=== PATIENT | female | born 2000 | race Caucasian/White ===

== ENCOUNTER 2021-12-17 08:58 | Emergency (ER) | payer OTHER, MEDICAID, SELFPAY ==
[2021-12-17 09:08] VITALS: BP 144/89; PULSE 78; RESP 16; TEMP 36.6; O2SAT 100; BMI 28.3
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
[2021-12-17 09:51] LABS: Squamous Epithelial Cell Urine 5-10 /HPF (0-5/HPF)
[2021-12-17 09:52] LABS: RBC Urine 30-100/HPF (0-5/HPF)
[2021-12-17 09:53] LABS: Bacteria Urine Moderate (10-30)
[2021-12-17 09:54] LABS: Culture Indicated Urine Specimen Cultured; WBC Urine 10-30/HPF (0-5/HPF)
[2021-12-17] MEDS: ACETAMINOPHEN 325 MG TABLET 975 MG PO (10:29)
[2021-12-17] MEDS: TRIMETH/SULFA 160/800 (DS) TABLET 1 TAB PO (10:30)
[2021-12-17] MEDS: ONDANSETRON 4 MG ODT SL (10:30)
[2021-12-17 10:33] VITALS: BP 149/91; PULSE 56; RESP 18; O2SAT 98
== END 2021-12-17 10:37 | disposition home or self-care (01) ==
PROVIDERS: Emergency Provider Emergency Medicine; PCP Orthopaedic Surgery
DX: N12 Tubulo-interstitial nephritis, not specified as acute or chronic (principal)
CPT/HCPCS: 81003; 81015; 81025; 87077; 87086; 87147; 99283

== ENCOUNTER 2022-11-26 21:30 | Emergency (ER) | payer OTHER, MEDICAID, SELFPAY ==
[2022-11-26 21:38] VITALS: BP 136/85; PULSE 105; RESP 18; TEMP 36.3; O2SAT 100; BMI 26.5
--- NOTE | 2022-11-26 21:44 | DI.RAD.S_ITS ---
PROCEDURE: XR TIBIA FUBULA RT 2V INDICATIONS: has contusion and pain after hit by a softball TECHNIQUE: 2 views of the tibia and fibula were acquired. COMPARISON: None. FINDINGS: Bones: No fractures or dislocations. No suspicious bony lesions. Soft tissues: No suspicious soft tissue calcifications or masses. IMPRESSION: 1. No fracture or dislocation. Dictated by: Gordo Tse M.D. on 11/26/2022 at 23:18 Approved by: Gordo Tse M.D. on 11/26/2022 at 23:19
--- NOTE | 2022-11-26 23:31 | ED.LOWEXIN ---
HPI - Extremity Injury (Lower) General Chief Complaint: Extremity Injury, Lower Stated Complaint: rt ching pain, hit by baseball Time Seen by Provider: 11/26/22 23:29 Source: patient Mode of arrival: Ambulatory History of Present Illness HPI Narrative: Patient is a 22-year-old female who is here for evaluation of an injury to her right ching. She states she was hit by a softball earlier today. No other injuries from the event. Has had difficulty walking and there is bruising and swelling over the area. Related Data Previous Rx's Medication Instructions Recorded ondansetron 4 mg disintegrating 4 mg PO Q6H PRN nausea and 12/17/21 tablet vomiting #5 tabs sulfamethoxazole 800 1 tab PO Q12H #20 tabs 12/17/21 mg-trimethoprim 160 mg tablet (Bactrim DS) Allergies Allergy/AdvReac Type Severity Reaction Status Date / Time No Known Drug Allergies Allergy Verified 12/17/21 09:14 Review of Systems Musculoskeletal Musculoskeletal: Reports system reviewed and no additional complaints, except as documented Integumentary/Breasts Skin/Breast: Reports system reviewed and no additional complaints, except as documented Neurologic Neurologic: Reports system reviewed and no additional complaints, except as documented Patient History Social History Smoking Status: Current every day smoker Smoking Status: Current every day smoker tobacco type: vaping alcohol intake frequency: holidays/special occasions only Substance Use Type: does not use Exam Initial Vital Signs Initial Vital Signs: Vital Signs Temperature 97.3 F L 11/26/22 21:38 Pulse Rate 105 H 11/26/22 21:38 Respiratory Rate 18 11/26/22 21:38 Blood Pressure 136/85 11/26/22 21:38 Pulse Oximetry 100 11/26/22 21:38 Oxygen Delivery Method Room Air 11/26/22 21:38 Skin Other: Superficial contusion to the anterior distal 1/3 of the right ching. There are no breaks in the skin. Extrem Other: Contusion to the right anterior ching Course Orders Ordered: ED Orders 11/26/22 21:44 XR tibia fibula RT 2V Stat Vital Signs Vital signs: Vital Signs - 8 hr 11/26/22 21:38 Temperature 97.3 F L Pulse Rate 105 H Respiratory Rate 18 Blood Pressure 136/85 Pulse Oximetry 100 Oxygen Delivery Method Room Air MDM - Extremity Injury (Lower) Imaging Data Extremity x-ray #1: Radiologist's Impression: PROCEDURE:? XR TIBIA FUBULA RT 2V ? INDICATIONS:? has contusion and pain after hit by a softball ? TECHNIQUE:? 2 views of the tibia and fibula were acquired.? ? COMPARISON:? None. ? FINDINGS:? ? Bones:? No fractures or dislocations.? No suspicious bony lesions.? ? Soft tissues:? No suspicious soft tissue calcifications or masses.? ? IMPRESSION:? ? 1. No fracture or dislocation. [facility] Narrative Medical decision making narrative: Has a fairly large contusion in the right anterior ching without fracture or dislocation. No breaks in the skin. Discussed the findings of the x-ray with the patient. Will discharge home with care instructions and return precautions. She expressed understanding and agreement. Discharge Plan Departure Patient Disposition: Home Clinical Impression: Contusion of skin Instructions: DI for Contusion Activity Restrictions/Additional Instructions: No fractures were noted on the x-rays. You can walk on your leg as tolerated. You can take Tylenol or ibuprofen for discomfort. Using ice over the area maybe helpful as well. Prescriptions: No Action sulfamethoxazole-trimethoprim [Bactrim DS] 800-160 mg tablet 1 tab PO Q12H Qty: 20 0RF ondansetron 4 mg tablet,disintegrating 4 mg PO Q6H PRN (Reason: nausea and vomiting) Qty: 5 0RF Referrals: Bridger Garcia MD [Primary Care Provider] - Stand Alone Forms: Patient Portal/API
== END 2022-11-26 23:38 | disposition home or self-care (01) ==
PROVIDERS: Emergency Provider Emergency Medicine; PCP Family Medicine
DX: S80.11XA Contusion of right lower leg, initial encounter (principal); W21.07XA Struck by softball, initial encounter
CPT/HCPCS: 73590; 99281; 99283

== ENCOUNTER 2024-04-05 13:55 | Emergency (ER) | payer OTHER, SELFPAY ==
--- NOTE | 2024-04-05 13:58 | ED_ITS ---
HPI - Wound/Laceration <Constanza Lauren PA-C - Last Filed: 04/05/24 16:48> General Chief Complaint: Extremity Injury, Upper Stated Complaint: pinched by a crab right hand Time Seen by Provider: 04/05/24 13:58 History of Present Illness HPI narrative: Ms. Montenegro is a pleasant 23-year-old female with no reported past medical history who presents to the emergency department for a right middle finger injury sustained from a crab just prior to arrival. 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 The patient eventually got the crab off but reports her middle finger was twisted abnormally and she also sustained multiple small puncture wounds. She took 2 Excedrin migraine prior to ED arrival. She is unsure of her last tetanus shot. She denies any antibiotic allergies. She denies any other problems or injuries. Denies history of blood thinner use or diabetes. Related Data Previous Rx's Medication Instructions Recorded ondansetron 4 mg disintegrating 4 mg PO Q6H PRN nausea and 12/17/21 tablet vomiting #5 tabs sulfamethoxazole 800 1 tab PO Q12H #20 tabs 12/17/21 mg-trimethoprim 160 mg tablet (Bactrim DS) doxycycline hyclate 100 mg capsule 100 mg PO BID 5 days #10 caps 04/05/24 fluconazole 150 mg tablet 150 mg PO .once #1 tab 04/05/24 levofloxacin 750 mg tablet 750 mg PO DAILY 4 days #4 tabs 04/05/24 Allergies Allergy/AdvReac Type Severity Reaction Status Date / Time No Known Drug Allergies Allergy Verified 12/17/21 09:14 Review of Systems <Constanza Lauren PA-C - Last Filed: 04/05/24 16:48> Review of Systems ROS Unobtainable: All systems reviewed & are unremarkable except as noted in HPI and below Patient History <Constanza Lauren PA-C - Last Filed: 04/05/24 16:48> Social History Smoking Status: Current every day smoker Smoking Status: Current every day smoker tobacco type: vaping alcohol intake frequency: holidays/special occasions only Substance Use Type: does not use Exam <Constanza Lauren PA-C - Last Filed: 04/05/24 16:48> Narrative Exam Narrative: GENERAL: 23 year old patient appears stated age. Well-developed patient, in no acute distress. HEAD: Atraumatic. Normocephalic. EYES: Extraocular motions intact. No scleral icterus. No injection or drainage. ENT: Nose without bleeding, purulent drainage. NECK: Trachea midline. Cervical ROM intact. CARDIOVASCULAR: Regular rate RESPIRATORY: ?Nonlabored respirations. ?Speaking in clear, full sentences. EXTREMITIES: Right middle finger pain with flexion at the dip PIP and PIP. Flexion and extension intact. No pain with flexion of MCP. NEURO: AOx3. ?Clear speech. ?Moves all 4 extremities appropriately. SKIN: Right middle finger with 6 pinpoint puncture wounds along the distal and middle phalanx. No active bleeding. Brisk capillary refill. No nail damage. Initial Vital Signs Initial Vital Signs: Vital Signs Temperature 97.9 F 04/05/24 14:04 Pulse Rate 67 04/05/24 14:04 Respiratory Rate 18 04/05/24 14:04 Blood Pressure 144/66 H 04/05/24 14:04 Pulse Oximetry 99 04/05/24 14:04 Oxygen Delivery Method Room Air 04/05/24 14:04 <Zackary Chavez MD - Last Filed: 04/05/24 19:31> Initial Vital Signs Initial Vital Signs: Vital Signs Temperature 97.9 F 04/05/24 14:04 Pulse Rate 67 04/05/24 14:04 Respiratory Rate 18 04/05/24 14:04 Blood Pressure 144/66 H 04/05/24 14:04 Pulse Oximetry 99 04/05/24 14:04 Oxygen Delivery Method Room Air 04/05/24 14:04 Course <Constanza Lauren PA-C - Last Filed: 04/05/24 16:48> Orders Ordered: ED Orders 04/05/24 14:11 XR finger RT min 2V Stat 04/05/24 15:57 Urine Culture Stat Urine Microscopic Stat Discontinued Medications Bacitracin (Bacitracin Oint 0.9 Gm Pckt) 1 applic TOP NOW ONE Stop: 04/05/24 15:45 Last Admin: 04/05/24 16:28 Dose: 1 applic Documented By: RB Diphtheria/Tetanus/Acell Pertussis (Tet,Diph,Pertuss(Acell),Vac/Pf 0.5 Ml Syri nge) 0.5 ml IM .ONCE ONE Stop: 04/05/24 14:13 Last Admin: 04/05/24 16:28 Dose: 0.5 ml Documented By: RB Doxycycline Hyclate (Doxycycline Hyclate 100 Mg Tablet) 100 mg PO NOW ONE Stop: 04/05/24 15:45 Last Admin: 04/05/24 16:28 Dose: 100 mg Documented By: RB Levofloxacin (Levofloxacin 250 Mg Tablet) 750 mg PO NOW ONE Stop: 04/05/24 15:45 Last Admin: 04/05/24 16:28 Dose: 750 mg Documented By: RB Vital Signs Vital signs: Vital Signs - 8 hr 04/05/24 14:04 04/05/24 14:07 04/05/24 16:57 Temperature 97.9 F 98.1 F Pulse Rate 67 77 Pulse Rate [Right Radial] 72 Respiratory Rate 18 18 Blood Pressure 144/66 H 136/62 Pulse Oximetry 99 99 Oxygen Delivery Method Room Air Room Air <Zackary Chavez MD - Last Filed: 04/05/24 19:31> Orders Ordered: ED Orders 04/05/24 14:11 XR finger RT min 2V Stat 04/05/24 15:57 Urine Culture Stat Urine Microscopic Stat Discontinued Medications Bacitracin (Bacitracin Oint 0.9 Gm Pckt) 1 applic TOP NOW ONE Stop: 04/05/24 15:45 Last Admin: 04/05/24 16:28 Dose: 1 applic Documented By: RB Diphtheria/Tetanus/Acell Pertussis (Tet,Diph,Pertuss(Acell),Vac/Pf 0.5 Ml Syringe) 0.5 ml IM .ONCE ONE Stop: 04/05/24 14:13 Last Admin: 04/05/24 16:28 Dose: 0.5 ml Documented By: RB Doxycycline Hyclate (Doxycycline Hyclate 100 Mg Tablet) 100 mg PO NOW ONE Stop: 04/05/24 15:45 Last Admin: 04/05/24 16:28 Dose: 100 mg Documented By: RB Levofloxacin (Levofloxacin 250 Mg Tablet) 750 mg PO NOW ONE Stop: 04/05/24 15:45 Last Admin: 04/05/24 16:28 Dose: 750 mg Documented By: RB Vital Signs Vital signs: Vital Signs - 8 hr 04/05/24 14:04 04/05/24 14:07 04/05/24 16:57 Temperature 97.9 F 98.1 F Pulse Rate 67 77 Pulse Rate [Right Radial] 72 Respiratory Rate 18 18 Blood Pressure 144/66 H 136/62 Pulse Oximetry 99 99 Oxygen Delivery Method Room Air Room Air MDM - Wound/Laceration <Constanza Lauren PA-C - Last Filed: 04/05/24 16:48> Lab Data Labs: Lab Results 04/05/24 Range/Units 15:57 Urine RBC None seen (0-5/HPF) Urine WBC 5-10/hpf H (0-5/HPF) Ur Squamous Epith Cells 10-30 /hpf H (0-5/HPF) Urine Bacteria Few (2-10) H (None) Ur Culture Indicated? Specimen cultured Vol Urine Centrifuged 10ml (spun) Imaging Data Right Middle Finger X-Ray: Radiologist's Impression: PROCEDURE: XR FINGER RT MIN 2V INDICATIONS: right middle finger crab pinch w/ puncture wounds TECHNIQUE: AP hand, 2 views of the 3rd distal finger(s) acquired. COMPARISON: None. FINDINGS: Bones: No fractures or dislocations. No suspicious bony lesions. Soft tissues: No suspicious soft tissue calcifications. IMPRESSION: No acute bony abnormality. No foreign body seen. [facility] Narrative Medical decision making narrative: 23-year-old female with no reported past medical history, right-hand dominant, presents to the emergency department for crab injury to her right middle finger. Differential diagnosis includes but is not limited to middle finger fracture, minimal finger strain, puncture wound, laceration, infection, salt water conta mination, etc. On exam patient is in no acute distress, nontoxic appearing, vital signs within normal limits. She has pain with flexion of her right middle finger and small puncture wounds after a crab latched onto her. We will update tetanus shot, obtain x-ray of the finger, extensively irrigate and cleanse wound. We will discuss empiric antibiotic coverage with pharmacy given salt water exposure. X-ray negative for acute bony abnormality or foreign body. Tdap updated. After shared decision-making with the pharmacy, we will cover patient with levofloxacin and doxycycline for soft tissue puncture wound with sea water exposure. I discussed black box risks of fluoroquinolones with the patient. UA with signs of contamination, patient's suspect she has a yeast infection, prescribed her a dose of Diflucan to take after completion of antibiotics if needed for yeast infection symptoms. She has not having any dysuria, we will hold off on antibiotics for UTI pending urine culture. Discussed proper wound care with patient. Discussed signs and symptoms of infection to return to ER for. Her wound was cleansed extensively and nonadherent dressing was applied with bacitracin. All questions answered. Patient is stable for discharge. <Zackary Chavez MD - Last Filed: 04/05/24 19:31> Lab Data Labs: Lab Results 04/05/24 Range/Units 15:57 Urine RBC None seen (0-5/HPF) Urine WBC 5-10/hpf H (0-5/HPF) Ur Squamous Epith Cells 10-30 /hpf H (0-5/HPF) Urine Bacteria Few (2-10) H (None) Ur Culture Indicated? Specimen cultured Vol Urine Centrifuged 10ml (spun) Discharge Plan Departure Patient Disposition: Home Clinical Impression: Puncture wound Crushing injury of right middle finger Qualifiers: Encounter type: initial encounter Qualified Code(s): S67.192A - Crushing injury of right middle finger, initial encounter Instructions: DI for Puncture Wound Activity Restrictions/Additional Instructions: Please keep the dressing on your wound clean, dry, and intact for the next 12-24 hours. After this time, you may remove the dressing and gently clean the wound with soap and water, then pat dry. Keep the wound clean and covered. Avoid soaking the wound in any water such as a bath, pool, or the ocean. If you develop any signs of wound infection such as increased redness, pus drainage, streaking redness, or fevers, please return to the ER immediately for evaluation. Once sutures are removed and the wound has healed, apply sunscreen daily to reduce the appearance of scars. We updated your tetanus shot today. I have prescribed you a 1 time dose of Diflucan if needed for yeast infection after the completion of antibiotics. Please follow up with your primary care doctor within the next 2-3 days for ER follow-up. (If you do not have a PCP you can call [phone]. ?to schedule an appointment with an [facility] Primary Care Provider) IF YOU DEVELOP ANY NEW OR WORSENING SYMPTOMS, RETURN TO THE ER! Please read the attached instructions, they highlight more specific treatments and interventions for you at home. Thank you for letting me participate in your care, Constanza Lauren PA-C Prescriptions: New doxycycline hyclate 100 mg capsule 100 mg PO BID 5 Days Qty: 10 0RF levofloxacin 750 mg tablet 750 mg PO DAILY 4 Days Qty: 4 0RF Rx Instructions: start 04/06/24 fluconazole 150 mg tablet 150 mg PO .once Qty: 1 0RF Rx Instructions: Take after completion of antibiotics if needed for yeast infection No Action sulfamethoxazole-trimethoprim [Bactrim DS] 800-160 mg tablet 1 tab PO Q12H Qty: 20 0RF ondansetron 4 mg tablet,disintegrating 4 mg PO Q6H PRN (Reason: nausea and vomiting) Qty: 5 0RF Referrals: Bridger Garcia MD [Primary Care Provider] - Stand Alone Forms: Patient Portal/API/Survey ED Sign-out <Zackary Chavez MD - Last Filed: 04/05/24 19:31> Cosign ED Attending Cosignature Attestation: I was immediately available in the department for consultation. This documentation has been reviewed and I agree with assessment and plan. Supervised by Zackary Chavez MD
[2024-04-05 14:04] VITALS: BP 144/66; PULSE 67; RESP 18; TEMP 36.6; O2SAT 99; BMI 28.3
[2024-04-05 14:07] VITALS: PULSE 72
--- NOTE | 2024-04-05 14:11 | DI.RAD.S_ITS ---
PROCEDURE: XR FINGER RT MIN 2V INDICATIONS: right middle finger crab pinch w/ puncture wounds TECHNIQUE: AP hand, 2 views of the 3rd distal finger(s) acquired. COMPARISON: None. FINDINGS: Bones: No fractures or dislocations. No suspicious bony lesions. Soft tissues: No suspicious soft tissue calcifications. IMPRESSION: No acute bony abnormality. No foreign body seen. Dictated by: Memo Rasheed M.D. on 04/05/2024 at 15:24 Approved by: Memo Rasheed M.D. on 04/05/2024 at 15:25
[2024-04-05 16:12] LABS: Bacteria Urine Few (2-10); Culture Indicated Urine Specimen Cultured; RBC Urine None Seen (0-5/HPF); Squamous Epithelial Cell Urine 10-30 /HPF (0-5/HPF); Urine Volume 10mL (spun); WBC Urine 5-10/HPF (0-5/HPF)
[2024-04-05] MEDS: DOXYCYCLINE HYCLATE 100 MG TABLET PO (16:28)
[2024-04-05] MEDS: BACITRACIN OINT 0.9 GM PCKT 1 APPLIC TOP (16:28)
[2024-04-05] MEDS: levoFLOXacin 250 MG TABLET 750 MG PO (16:28)
[2024-04-05] MEDS: TET,DIPH,PERTUSS(ACELL),VAC/PF 0.5 ML SYRINGE IM (16:28)
[2024-04-05 16:57] VITALS: BP 136/62; PULSE 77; RESP 18; TEMP 36.7; O2SAT 99
== END 2024-04-05 16:57 | disposition home or self-care (01) ==
PROVIDERS: Emergency Provider Physician Assistant; PCP Family Medicine
DX: S61.232A Puncture wound without foreign body of right middle finger without damage to nail, initial encounter (principal); S67.192A Crushing injury of right middle finger, initial encounter; W26.8XXA Contact with other sharp object(s), not elsewhere classified, initial encounter; Z23 Encounter for immunization; B37.49 Other urogenital candidiasis
CPT/HCPCS: 73140; 81015; 81025; 87086; 90471; 99283; 99284; 90715